=== PATIENT | female | born 1965 | race Caucasian/White ===

== ENCOUNTER 2017-02-27 08:49 | Inpatient (IN) ==
[2017-02-27 09:12] LABS: MANUAL DIFF NEEDED? NO
[2017-02-27] MEDS ORDERED: ZOFRAN IV ONE ×2 (09:15→12:06)
[2017-02-27] MEDS ORDERED: TORADOL IV ONE (09:15)
[2017-02-27 09:24] LABS: BILIRUBIN URINE NEGATIVE (NEGATIVE); BLOOD URINE 1+ (NEGATIVE); CLARITY SL. CLOUDY (CLEAR); COLOR YELLOW; GLUCOSE URINE NEGATIVE (NEGATIVE); LEUKOCYTES URINE TRACE (NEGATIVE); NITRITE URINE NEGATIVE (NEGATIVE); PROTEIN URINE 1+(30 mg/dL) mg/dL (NEGATIVE); UROBILINOGEN URINE NORMAL
[2017-02-27 09:28] LABS: URINE CULTURE PL NEEDED? YES; URINE EPITHELIAL CELLS <10 /HPF (<10); URINE RBC <10 /HPF (<10)
[2017-02-27 09:29] LABS: URINE CAST GRANULAR PRESENT /LPF; URINE SOURCE CLEAN CATCH
[2017-02-27 09:50] LABS: AGAP 18; ALKALINE PHOSPHATASE 127 U/L (32-104); AMYLASE 29 U/L (20-200); BUN 20 mg/dL (8-22); CHLORIDE 93 mmol/L (98-107); COSMO 262; GOT 25 U/L (10-30); GPT 17 U/L (10-36); LIPASE 32 U/L (13-60); POTASSIUM 3.6 mmol/L (3.5-5.1); SODIUM 128 mmol/L (136-145); TCO2 17 mmol/L (25-35); TOTAL PROTEIN 7.9 g/dL (6.3-8.3)
[2017-02-27 09:52] LABS: BASO% 0.1 % (0.0-0.8); EOS# 0.02 X1000 (0.0-0.7); EOS% 0.2 % (0.0-10.0); HEMATOCRIT 48.1 % (37.0-47.0); HEMOGLOBIN 16.6 g/dL (12.0-16.0); IMM GRAN# 0.02 X1000 (0.0-0.04); IMM GRAN% 0.2 % (0.0-0.5); LYMPH# 1.42 X1000 (1.2-3.4); MCH 29.5 PG (27-31); MCHC 34.5 g/dL (33-37); MCV 85.6 FL (81-99); MONO# 1.03 X1000 (0.11-0.59); MONO% 10.1 % (1.7-9.3); MPV 10.9 FL (7.4-10.4); NEUT% 75.4 % (42.2-75.2); PLT 219 X1000 (130-400); RBC 5.62 XMIL (4.2-5.4)
[2017-02-27] MEDS ORDERED: NS 1,000 ML IV ONE ×2 (09:54→12:01)
[2017-02-27] MEDS ORDERED: MORPHINE ONE (09:59)
[2017-02-27] MEDS ORDERED: MORPHINE IV ONE (10:00)
--- NOTE | 2017-02-27 11:38 | Diag Imaging Result Doc PS360 ---
CT ABD/PELVIS W/ IV CONT ONLY - 02/27/2017 INDICATION: abd pain TECHNIQUE: A CT dose reduction protocol was used. COMPARISON: None FINDINGS: The lung bases are clear and the heart size is normal. The liver, gallbladder, spleen, pancreas, adrenals, and kidneys are normal. There is significant wall thickening of the colon involving the transverse, descending, and sigmoid colon. Normal appendix. The rectum is spared. Urinary bladder and uterus are normal. Bones are intact. No free air or free fluid. The aorta and its branches are patent with very little in the way of vascular disease. IMPRESSION: Significant colitis. Presumably infectious. Correlate clinically. Electronically signed by Rosalino Chavez 02/27/2017 11:36 AM
[2017-02-27] MEDS ORDERED: FLAGYL 500 MG/NS 500 MG/100 ML IVPB IV ONE (11:48)
[2017-02-27] MEDS ORDERED: LEVAQUIN 750 MG/D5W 750 MG/150 ML IVPB IV ONE (11:48)
[2017-02-27] MEDS ORDERED: TYLENOL PO PRN (12:01)
[2017-02-27] MEDS ORDERED: DILAUDID IV ONE (12:05)
[2017-02-27] MEDS ORDERED: FLAGYL 500 MG/NS 500 MG/100 ML IVPB ONE (12:19)
[2017-02-27] MEDS ORDERED: ZOFRAN IV PRN ×2 (17:05→18:26)
[2017-02-27] MEDS ORDERED: SODIUM CHLORIDE 0.9% INJ PRN ×2 (17:06→18:26)
[2017-02-27] MEDS ORDERED: PHENERGAN IV PRN ×2 (17:06→18:25)
[2017-02-27] MEDS ORDERED: KLONOPIN PO PRN (17:14)
[2017-02-27] MEDS ORDERED: LEVAQUIN 750 MG/D5W 750 MG/150 ML IVPB IV SCH (17:15)
[2017-02-27] MEDS ORDERED: SODIUM CHLORIDE 0.9% INJ SCH (17:15)
[2017-02-27] MEDS ORDERED: NS 1,000 ML IV SCH (17:15)
[2017-02-27] MEDS ORDERED: PROTONIX IV SCH (17:15)
[2017-02-27] MEDS ORDERED: FLAGYL 500 MG/NS 500 MG/100 ML IVPB IV SCH (17:15)
[2017-02-27] MEDS: ZOFRAN IV PRN ×2 (17:52→22:37)
[2017-02-27] MEDS: MORPHINE IV PRN ×2 (17:53→22:37)
[2017-02-27 18:19] LABS: OCCULT BLOOD 1 POSITIVE (NEGATIVE)
[2017-02-27] MEDS: PROTONIX IV SCH (18:40)
[2017-02-27] MEDS: SODIUM CHLORIDE 0.9% INJ SCH (18:40)
[2017-02-27] MEDS: FLAGYL 500 MG/NS 500 MG/100 ML IVPB IV SCH (18:45)
[2017-02-27] MEDS: LEVAQUIN 750 MG/D5W 750 MG/150 ML IVPB IV SCH (19:43)
[2017-02-27] MEDS: KLONOPIN PO PRN (21:03)
[2017-02-27] MEDS: NEURONTIN PO SCH (21:03)
[2017-02-28] MEDS: FLAGYL 500 MG/NS 500 MG/100 ML IVPB IV SCH ×4 (00:35→18:49)
[2017-02-28] MEDS: NS 1,000 ML IV SCH ×2 (03:25→12:24)
[2017-02-28] MEDS: MORPHINE IV PRN ×5 (03:26→21:25)
[2017-02-28 06:54] LABS: AGAP 9; ALBUMIN 3.2 g/dL (3.5-5.0); ALKALINE PHOSPHATASE 98 U/L (32-104); BUN 14 mg/dL (8-22); CALCIUM 8.2 mg/dL (8.8-10.2); CHLORIDE 103 mmol/L (98-107); COSMO 268; GOT 24 U/L (10-30); GPT 15 U/L (10-36); POTASSIUM 3.8 mmol/L (3.5-5.1); SODIUM 134 mmol/L (136-145); TCO2 22 mmol/L (25-35); TOTAL BILIRUBIN < 0.15 mg/dL (0.20-1.00); TOTAL PROTEIN 6.1 g/dL (6.3-8.3)
[2017-02-28 06:56] LABS: HEMATOCRIT 39.5 % (37.0-47.0); HEMOGLOBIN 13.6 g/dL (12.0-16.0); MCHC 34.4 g/dL (33-37); MCV 87.2 FL (81-99); MPV 10.5 FL (7.4-10.4); RBC 4.53 XMIL (4.2-5.4)
[2017-02-28] MEDS: NEURONTIN PO SCH ×2 (08:58→20:58)
[2017-02-28] MEDS ORDERED: NEURONTIN PO SCH (09:00)
[2017-02-28] MEDS: PROTONIX IV SCH (18:49)
[2017-02-28] MEDS: SODIUM CHLORIDE 0.9% INJ SCH (18:49)
[2017-02-28] MEDS: LEVAQUIN 750 MG/D5W 750 MG/150 ML IVPB IV SCH (20:58)
[2017-02-28] MEDS: KLONOPIN PO PRN (23:30)
[2017-03-01] MEDS: NS 1,000 ML IV SCH (00:54)
[2017-03-01] MEDS: MORPHINE IV PRN ×5 (02:07→21:44)
[2017-03-01] MEDS: FLAGYL 500 MG/NS 500 MG/100 ML IVPB IV SCH ×2 (02:24→07:10)
[2017-03-01] MEDS ORDERED: LEVAQUIN 750 MG/D5W 750 MG/150 ML IVPB IV SCH (08:00)
[2017-03-01] MEDS ORDERED: FLAGYL 500 MG/NS 500 MG/100 ML IVPB IV SCH (08:00)
[2017-03-01] MEDS: NEURONTIN PO SCH ×2 (08:59→20:20)
[2017-03-01] MEDS: LEVAQUIN PO SCH (08:59)
[2017-03-01] MEDS: FLAGYL PO SCH ×3 (08:59→17:34)
[2017-03-01] MEDS: SODIUM CHLORIDE 0.9% INJ SCH (17:34)
[2017-03-01] MEDS: PROTONIX IV SCH (17:34)
[2017-03-01] MEDS: KLONOPIN PO PRN (20:19)
[2017-03-02] MEDS: MORPHINE IV PRN ×3 (02:29→13:07)
[2017-03-02] MEDS: LEVAQUIN PO SCH (09:08)
[2017-03-02] MEDS: NEURONTIN PO SCH (09:09)
[2017-03-02] MEDS: FLAGYL PO SCH ×2 (09:09→13:07)
[2017-03-02 11:04] VITALS: BP 100/62
[2017-03-03] MEDS ORDERED: LEVAQUIN PO SCH (09:00)
== END 2017-03-02 14:46 | disposition home or self-care (01) ==
LOC: P.ED 08:49 → SUATTDRO 08:50 → P.MEDSURG 08:50
PROVIDERS: ATTEND Internal Medicine

== ENCOUNTER 2019-08-11 18:14 | Inpatient (IN) ==
[2019-08-11] MEDS ORDERED: NS 1,000 ML IV ONE ×2 (18:26→20:54)
--- NOTE | 2019-08-11 18:42 | PROVIDER DOCUMENTATION ---
HPI-Abdominal Pain/GI Problem - General Chief Complaint: Vomiting Blood Stated Complaint: NAUSEATED, VOMITING BLOOD Time Seen by Provider: 08/11/19 18:25 Source: patient Allergies/Adverse Reactions: Patient Allergies Allergy/AdvReac Type Severity Reaction Status Date / Time No Known Allergies Allergy Verified 07/21/18 15:24 Home Medications: Home Medication List Medication Instructions Recorded Confirmed Last Taken Type Gabapentin [Neurontin] 300 mg PO BID 02/27/17 07/22/18 07/21/18 22:00 History Fluoxetine HCl [Prozac] 10 mg PO DAILY 10/07/17 07/22/18 07/22/18 04:00 History Hydrocodone/Acetaminophen 7.5 mg PO BID 10/07/17 07/22/18 07/21/18 22:00 History [Hydrocodone-Acetamin 7.5-325] Lorazepam [Ativan] 1 mg PO DAILY 10/07/17 07/22/18 07/22/18 04:00 History Tizanidine HCl 4 mg PO HS 10/07/17 07/22/18 07/21/18 22:00 History Amiodarone [Cordarone] 400 mg PO DAILY tablet 10/17/17 07/22/18 07/22/18 04:00 Rx Apixaban [Eliquis] 5 mg PO BID tablet 10/17/17 07/22/18 07/21/18 22:00 Rx Omeprazole [Prilosec] 40 mg PO DAILY@0700 capsule 10/17/17 07/22/18 07/22/18 04:00 Rx Albuterol 2.5MG/Ipratrop 0.5MG 3 ml INH Q3-4H PRN PRN #30 neb 07/18/18 Unknown Rx [Duoneb] Furosemide [Lasix] 20 mg PO DAILY 07/18/18 07/22/18 07/22/18 04:00 History Hydroxyzine [Atarax] 10 mg PO TID 07/18/18 07/22/18 07/21/18 22:00 History Nebulizer Accessories [Nebulizer] 1 ea MC Q3HR #1 kit 07/18/18 07/22/18 07/21/18 22:00 Rx Clindamycin [Cleocin] 300 mg PO Q6HR #80 cap 07/21/18 07/22/18 07/21/18 22:00 Rx Tramadol [Ultram] 50 mg PO Q6H PRN PRN #22 tab 07/21/18 07/22/18 Unknown Rx Fluticasone/Salmet 250/50 INH 1 puff INH DAILY 07/22/18 07/22/18 07/22/18 04:00 History [Advair 250/50 Diskus] - History of Present Illness-ABD Nature of Presenting Problems: 54 yo F, hx of HTN, HF, 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 Pt appears pale in bed at time of evaluation. Abdominal Pain Onset Location: reports: generalized abdomen Pain Radiation: reports: no radiation Quality of Pain: reports: aching Severity in ED: reports: moderate Onset/Duration: reports: 4-6 hours ago Timing: reports: still present Activities at Onset: reports: none Exposure to sick contacts?: No Modifying Factors: improves with: nothing Associated Symptoms: reports: malaise, nausea, vomiting Last BM: this afternoon Dark Stools Present?: reports: black, tarry Rectal Pain: reports: none # of Vomiting Episodes: 1 Emesis Description: reports: coffee grounds Review of Systems - Adult - REVIEW OF SYSTEMS - ADULT Constitutional: reports: see HPI Eyes: reports: no symptoms reported Ears, Nose, Mouth & Throat: reports: no symptoms reported Cardiovascular: reports: no symptoms reported Respiratory: reports: no symptoms reported Gastrointestinal: reports: see HPI, abdominal pain, hematemesis, nausea, vomiting Genitourinary: reports: no symptoms reported Musculoskeletal: reports: no symptoms reported Integumentary: reports: no symptoms reported Neurological: reports: no symptoms reported Psychiatric: reports: no symptoms reported Past History - Adult - PAST MEDICAL HISTORY-ADULT Review of Records: reports: Old Records Reviewed, Nursing Assessment Review Major Childhood Illnesses: reports: denies history Cardiovascular: reports: CHF, HTN Respiratory: reports: denies history Gastrointestinal: reports: GERD Obstetrical/Gynecological: reports: denies history Genitourinary: reports: denies history Musculoskeletal: reports: chronic pain, other (rt foot old burn and chronic wound) Neurological: reports: denies history Psychiatric: reports: denies history Endocrine/Immune: reports: denies history Other Conditions: reports: denies history - PRIOR SURGERIES/PROCEDURES Surgical/Procedure History: reports: BTL, other (skin grafts to rt foot) - IMMUNIZATION STATUS Childhood Immunizations: See Nurse Assessment Flu Vaccine: See Nurse Assessment - FAMILY HISTORY Family History: reviewed, not pertinent Physical Exam-General - PHYSICAL EXAM-ADULT Initial Vital Signs Reviewed: Yes - CONSTITUTIONAL General Appearance: alert, mild distress - EYES Eyes: PERRL/EOMI - HEAD, EARS, NOSE, MOUTH & THROAT HENMT: normocephalic/atraumatic, moist mucous membranes - RESPIRATORY Respiratory: chest non-tender, lungs clear, normal breath sounds - CARDIOVASCULAR Cardiovascular: regular rate, rhythm - GASTROINTESTINAL (ABDOMEN) Abdominal Exam: normal bowel sounds, soft, tenderness (mildly tender, generalized) - SKIN Integumentary: warm/dry - PSYCHIATRIC Psych/Mental Status: normal mood/affect, oriented x 3 Progress - PLAN OF CARE/RESULTS Progress/Plan/Lab Results: Vital Signs - 8 hr 08/11/19 18:18 Temperature 96.0 F L Pulse Rate 82 Respiratory Rate 16 O2 Sat by Pulse Oximetry 100 Orders Category Date Time Status CHEST-2 VIEWS [RAD] Stat Exams 08/11/19 18:[address] ABDOMEN/PELVIS W/O CONTRAST [CT] Stat Exams 08/11/19 18:41 Ordered CBC WITH ELECTRONIC DIFF [HEME] Stat Lab 08/11/19 18:26 Uncollected COMPREHENSIVE METABOLIC PANEL [CHEM] Stat Lab 08/11/19 18:26 Uncollected TYPE & SCREEN [BBK] Stat Lab 08/11/19 18:26 Uncollected URINALYSIS W/POSS RFLX CULT [URINALYSIS] Stat Lab 08/11/19 18:26 Uncollected 0.9% Sodium Chloride Inj [Ns] 1,000 ml Med 08/11/19 18:26 Active IV 999 mls/hr Discussed with pt and family at bedside - there are lab findings concerning for acute blood loss; discussed the case with the hospitalist who accepts the pt for admission. Result Diagrams: 08/11/19 19:32 08/11/19 19:32 - XRAY 1 XRAY Study: Chest Impression: See EMR Report (EXAM: CHEST-2 VIEWS - 08/11/2019 HISTORY: short of breath TECHNIQUE: Chest two views COMPARISON: 07/18/2018 FINDINGS: Heart size is normal. The lungs appear clear. There is no pleural effusion or pne umothorax identified. IMPRESSION: No evidence of acute disease. Electronically signed by John Crawford 08/11/2019 7:30 PM 08/11/191929 Interpreting Physician: John Crawford MD Dictated Date/Time: 08/11/191928 cc: Madison Ambrocio MD; Ryder Mclain) - CT/MRI 1 CT Study: Abdomen, Pelvis Impression: See EMR Report (EXAM: CT ABDOMEN/PELVIS W/O CONTRAST - 08/11/2019 HISTORY: abd pain, vomiting blood TECHNIQUE: CT abdomen/pelvis without contrast. No contrast administered per request of the referring provider. COMPARISON: 10/11/2017 CT abdomen/pelvis with intravenous contrast FINDINGS: There is some limitation of detail without administered contrast. The visualized lung bases are clear. There are no substantial abnormalities of the liver, spleen, adrenal glands, or pancreas identified. There are no calcified gallstones or pericholecystic inflammation identified. There are small nonobstructing stones in the bilateral kidneys. There is no obstructing renal stone or hydronephrosis identified. There are small to borderline retroperitoneal lymph nodes similar to prior. There are atherosclerotic calcifications noted. There are substantial lower lumbar spine degenerative changes noted. There is no evidence of bowel obstruction. The appendix is unremarkable. There is mild wall thickening along the sigmoid colon. There is no surrounding inflammation or infiltration of adjacent fat. There is no extraluminal gas collection or abscess identified. There is no free air or free fluid identified. IMPRESSION: No bowel obstruction. Unremarkable appendix. Mild wall thickening along sigmoid colon. No surrounding inflammation. Small nonobstructing stones in bilateral kidneys. Stable small to borderline retroperitoneal lymph nodes. Substantial lower lumbar spine degenerative changes. This exam was performed using automated exposure control, adjustment of mA or kV according to patient size, and/or use of iterative reconstruction technique. Electronically signed by John Crawford 08/11/2019 7:29 PM) - CONSULTS/PCP/HOSPITALIST Notification #1 *Consult/PCP/Hospitalist*: Dr. Jackman Time Discussed: 20:28 Consult Disposition: Admit Departure - Departure Date of Disposition Decision: 08/11/19 Time of Disposition Decision: 20:29 DIAGNOSIS: GI bleed Qualifiers: GI bleed type/associated pathology: unspecified gastrointestinal hemorrhage type Qualified Code(s): K92.2 - Gastrointestinal hemorrhage, unspecified Disposition: ADMITTED INPATIENT 09 Certified Medical Emergency: Emergent Condition: Fair Referrals and Follow-Ups: Ryder Mclain [Primary Care Provider] - - Critical Care Note This patient required my direct & personal management of CC.: No Attestation - Physician/ RISHI Attestation Patient care was provided by Advanced Practice Provider:: No The physician spent face to face time with patient:: Yes Advanced Practice Provider documentation review:: Supervising physician onsite and consulted in the evaluation and care of this patient. The physician did have a face to face encounter with the patient.
--- NOTE | 2019-08-11 19:31 | Diag Imaging Result Doc PS360 ---
EXAM: CT ABDOMEN/PELVIS W/O CONTRAST - 08/11/2019 HISTORY: abd pain, vomiting blood TECHNIQUE: CT abdomen/pelvis without contrast. No contrast administered per request of the referring provider. COMPARISON: 10/11/2017 CT abdomen/pelvis with intravenous contrast FINDINGS: There is some limitation of detail without administered contrast. The visualized lung bases are clear. There are no substantial abnormalities of the liver, spleen, adrenal glands, or pancreas identified. There are no calcified gallstones or pericholecystic inflammation identified. There are small nonobstructing stones in the bilateral kidneys. There is no obstructing renal stone or hydronephrosis identified. There are small to borderline retroperitoneal lymph nodes similar to prior. There are atherosclerotic calcifications noted. There are substantial lower lumbar spine degenerative changes noted. There is no evidence of bowel obstruction. The appendix is unremarkable. There is mild wall thickening along the sigmoid colon. There is no surrounding inflammation or infiltration of adjacent fat. There is no extraluminal gas collection or abscess identified. There is no free air or free fluid identified. IMPRESSION: No bowel obstruction. Unremarkable appendix. Mild wall thickening along sigmoid colon. No surrounding inflammation. Small nonobstructing stones in bilateral kidneys. Stable small to borderline retroperitoneal lymph nodes. Substantial lower lumbar spine degenerative changes. This exam was performed using automated exposure control, adjustment of mA or kV according to patient size, and/or use of iterative reconstruction technique. Electronically signed by John Crawford 08/11/2019 7:29 PM
--- NOTE | 2019-08-11 19:32 | Diag Imaging Result Doc PS360 ---
EXAM: CHEST-2 VIEWS - 08/11/2019 HISTORY: short of breath TECHNIQUE: Chest two views COMPARISON: 07/18/2018 FINDINGS: Heart size is normal. The lungs appear clear. There is no pleural effusion or pneumothorax identified. IMPRESSION: No evidence of acute disease. Electronically signed by John Crawford 08/11/2019 7:30 PM
[2019-08-11 19:49] LABS: BASO# 0.03 X1000 (0.0-0.2); BASO% 0.2 % (0.0-0.8); EOS# 0.05 X1000 (0.0-0.7); EOS% 0.4 % (0.0-10.0); HEMATOCRIT 22.5 % (37.0-47.0); HEMOGLOBIN 7.4 g/dL (12.0-16.0); IMM GRAN# 0.08 X1000 (0.0-0.04); IMM GRAN% 0.6 % (0.0-0.5); LYMPH# 2.34 X1000 (1.2-3.4); LYMPH% 16.8 % (20.5-51.1); MCHC 32.9 g/dL (33-37); MCV 91.1 FL (81-99); MONO# 0.95 X1000 (0.11-0.59); MONO% 6.8 % (1.7-9.3); MPV 10.2 FL (7.4-10.4); NEUT# 10.51 X1000 (1.4-6.5); NEUT% 75.2 % (42.2-75.2); PLT 233 X1000 (130-400); RBC 2.47 XMIL (4.2-5.4); RDW 11.9 % (11.5-14.5); WBC 13.96 X1000 (4.8-10.8)
[2019-08-11 20:08] LABS: AGAP 12; ALB/GLOB RATIO 1.8; ALBUMIN 3.1 g/dL (3.5-5.0); ALKALINE PHOSPHATASE 71 U/L (32-104); BUN 45 mg/dL (8-22); CALCIUM 7.8 mg/dL (8.8-10.2); CHLORIDE 115 mmol/L (98-107); COSMO 306; CREATININE 0.6 mg/dL (0.5-0.9); ESTIMATED GFR > 60; GLUCOSE 129 mg/dL (70-104); GOT 16 U/L (10-30); GPT 14 U/L (10-36); POTASSIUM 3.7 mmol/L (3.5-5.1); SODIUM 147 mmol/L (136-145); TCO2 20 mmol/L (25-35); TOTAL BILIRUBIN 0.16 mg/dL (0.20-1.00); TOTAL PROTEIN 4.8 g/dL (6.3-8.3)
[2019-08-11] MEDS ORDERED: PROTONIX IV ONE (20:23)
[2019-08-11] MEDS ORDERED: SODIUM CHLORIDE 0.9% INJ ONE (20:23)
--- NOTE | 2019-08-11 21:14 | HISTORY AND PHYSICAL ---
ADDENDUM: PRIMARY CARE PROVIDER: Ryder Mclain. REASON FOR ADMISSION TODAY: Patient came in today because of 3 to 4 episodes of hematemesis and 3 to 4 episodes of dark melenic stools. No preceding abdominal pain, no fever, no chills. Underwent amputation of 1 of her toes yesterday which was gangrenous. Two days prior to that she was on Eliquis and stopped taking Eliquis. She does also inform me that she was taking Motrin and Goody powders in between for well over a week preceding the surgery to combat the pain. She does admit to feeling lightheaded, short of breath and was diaphoretic prior to come to the hospital. Her lab work of note is 7.2 and 22.5 down from a hematocrit of 33 and a hemoglobin of 10 year ago. BUN is 45, creatinine 0.6. VITAL SIGNS: Heart rate 82, respiratory rate 16, temperature is 96 degrees, blood pressure 104/71, heart rate 78. Exam is notable for profound conjunctiva pallor and generalized pallor. She has mild periumbilical tenderness but no peritoneal signs. Bowel sounds are hyperactive. No masses appreciated. PLAN: Patient will be on a high dose PPIs. Consult GI to see patient for endoscopic evaluation. Transfuse blood to keep hematocrit a shade over 8 being that patient has underlying vascular disease. Avoid potential medications that can worsen bleeding or affect platelet function indirectly namely Eliquis, Prozac, NSAIDs for now. Other home medications i.e. inhalers can be continued. The patient says has a history of heart failure, atrial fibrillation and I would recommend if patient is going to get another transfusion that they should pretreat the patient with low-dose Lasix 20 mg IV push for the 2nd or subsequent transfusions. cc: Josseline Jackman MD
[2019-08-11 21:28] LABS: INR 1.04; PROTIME 13.8 Seconds (11.0-16.0); PTT 27.3 Seconds (22.3-41.8)
[2019-08-11] MEDS ORDERED: NS 500 ML ONE (21:49)
[2019-08-11] MEDS ORDERED: XOPENEX NEB INH PRN (22:24)
[2019-08-11] MEDS ORDERED: ATROVENT NEB INH PRN (22:24)
[2019-08-11] MEDS ORDERED: ZOFRAN IV PRN (22:26)
[2019-08-11] MEDS ORDERED: OFIRMEV 1000 MG/ISOTONIC SOLN 1,000 MG/100 ML BOTTLE IV ONE (22:29)
[2019-08-11] MEDS ORDERED: NS NEB INH SCH (22:30)
[2019-08-11] MEDS ORDERED: NS 1,000 ML IV SCH (22:30)
[2019-08-12 02:02] LABS: HEMATOCRIT 23.1 % (37.0-47.0); HEMOGLOBIN 7.4 g/dL (12.0-16.0)
[2019-08-12] MEDS ORDERED: MORPHINE IV ONE ×2 (02:04→08:26)
[2019-08-12] MEDS ORDERED: SODIUM CHLORIDE 0.9% INJ PRN (02:06)
--- NOTE | 2019-08-12 05:34 | EKG Report ---
Test Performed on : 08/11/2019 11:09:23 PM Test Reason : WEAKNESS Blood Pressure : / mmHG Vent. Rate : 099 BPM Atrial Rate : 099 BPM P-R Int : 184 ms QRS Dur : 084 ms QT Int : 410 ms P-R-T Axes : 066 071 066 degrees QTc Int : 526 ms Sinus rhythm. with premature ventricular complexes. or fusion complexes Prolonged QT Abnormal ECG When compared with ECG of 18-JUL-2018 20:29, fusion complexes are now present premature ventricular complexes. are now present Vent. rate has increased BY 37 BPM Nonspecific T wave abnormality no longer evident in Inferior leads Nonspecific T wave abnormality no longer evident in Lateral leads Unconfirmed Result
--- NOTE | 2019-08-12 05:35 | EKG Report ---
Test Performed on : 08/12/2019 05:25:58 AM Test Reason : Hx of A-Fib, GI Bleed Blood Pressure : / mmHG Vent. Rate : 070 BPM Atrial Rate : 070 BPM P-R Int : 176 ms QRS Dur : 080 ms QT Int : 486 ms P-R-T Axes : 068 073 070 degrees QTc Int : 524 ms Sinus rhythm. with premature atrial complexes. Prolonged QT Abnormal ECG When compared with ECG of 11-AUG-2019 23:09, (Unconfirmed) fusion complexes are no longer present premature ventricular complexes. are no longer present premature atrial complexes. are now present Confirmed by Carlos Mon MD ([id number]) on 08/14/2019 5:28:52 PM
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
[2019-08-12] MEDS: PROTONIX IV SCH ×2 (08:22→22:18)
[2019-08-12] MEDS: SODIUM CHLORIDE 0.9% INJ SCH (08:25)
[2019-08-12 11:08] LABS: BASO# 0.02 X1000 (0.0-0.2); BASO% 0.2 % (0.0-0.8); EOS% 1.2 % (0.0-10.0); HEMATOCRIT 25.3 % (37.0-47.0); HEMOGLOBIN 8.1 g/dL (12.0-16.0); IMM GRAN# 0.02 X1000 (0.0-0.04); IMM GRAN% 0.2 % (0.0-0.5); LYMPH# 3.08 X1000 (1.2-3.4); LYMPH% 36.7 % (20.5-51.1); MCH 28.7 PG (27-31); MCV 89.7 FL (81-99); MONO# 0.61 X1000 (0.11-0.59); MONO% 7.3 % (1.7-9.3); MPV 9.9 FL (7.4-10.4); NEUT# 4.56 X1000 (1.4-6.5); NEUT% 54.4 % (42.2-75.2); PLT 168 X1000 (130-400); RBC 2.82 XMIL (4.2-5.4); RDW 12.8 % (11.5-14.5); WBC 8.39 X1000 (4.8-10.8)
[2019-08-12 11:13] LABS: INR 1.05; PROTIME 13.9 Seconds (11.0-16.0)
[2019-08-12 11:25] LABS: AGAP 11; BUN 27 mg/dL (8-22); CALCIUM 7.8 mg/dL (8.8-10.2); CHLORIDE 112 mmol/L (98-107); COSMO 292; CREATININE 0.6 mg/dL (0.5-0.9); ESTIMATED GFR > 60; GLUCOSE 104 mg/dL (70-104); POTASSIUM 3.6 mmol/L (3.5-5.1); SODIUM 144 mmol/L (136-145); TCO2 21 mmol/L (25-35)
--- NOTE | 2019-08-12 13:26 | PROGRESS NOTE ---
DATE: 08/12/2019 SUBJECTIVE: The patient seems to be more stable now. She received 2 units of packed red blood cells. Continue with the same management. Continue with Protonix twice a day. Gastroenterology Department has been consulted. OBJECTIVE: Vital Signs: Temperature 98.2 degrees, pulse 67, respiratory rate 22, blood pressure 112/76, oxygen saturation 99 on 2 L of nasal cannula. HEENT: Head normocephalic, no trauma. PERRLA. Neck: Supple. No JVD. No masses. Central trachea. Chest: Clear to auscultation. No wheezing. No rales. Abdomen: Soft, some tenderness to palpation at the level of the epigastric area. Extremities: No edema, no clubbing, no cyanosis. She has a dressing at the level of the right foot. She had a 5th toe amputation on 08/10/2019 in [place]. LABORATORY: WBC 8.3, hemoglobin 8.1, hematocrit 35.3, platelets 168,000. ASSESSMENT AND PLAN: 1. Upper gastrointestinal bleed. Gastroenterology department has been consulted. She has been having hematemesis and melena. She has been on Eliquis due to atrial fibrillation, but also she has been taking NSAIDs and Goody's powders to help to control the pain. She does have symptomatic anemia as well. 2. Symptomatic anemia, as above, due to gastrointestinal bleed. She was complaining mainly of dizziness. 3. History of atrial fibrillation with chronic anticoagulation. At this moment she is in sinus rhythm. Continue to monitor. 4. History of chronic obstructive pulmonary disease, not in exacerbation. 5. History of congestive heart failure. Continue to monitor for now. No signs or symptoms of congestive heart failure. 6. Chronic pain and anxiety. I had a large conversation with this patient about pain medication, NSAIDs and taking non-prescribed medications, they seem to understand. 7. Postoperative state of a right 5th toe amputation on 08/10/2019. Aware. 8. Deep vein thrombosis prophylaxis for now with SCDs due to gastrointestinal bleed. cc: Harvinder Varela MD
[2019-08-12] MEDS: MORPHINE IV PRN ×3 (13:38→22:19)
[2019-08-12] MEDS: NS 1,000 ML IV SCH ×2 (15:35→23:09)
--- NOTE | 2019-08-12 17:04 | GASTROENTEROLOGY CONSULTATION ---
DATE: 08/12/2019 REASON FOR CONSULTATION: Hematemesis, melena. HISTORY OF PRESENT ILLNESS: This is a 54-year-old female who came into the emergency room on 08/11/2019 with hematemesis and melena. She states symptoms started on Wednesday. Of note, patient did have a right 5th toe amputation on by Dr. Preston in [place]. The patient takes Eliquis for history of atrial fibrillation. She states her last Eliquis dose was on Wednesday. During review of systems, patient does state that she also takes frequent Goody powders up to 2 packets a day and also other NSAIDs like Advil or Motrin for chronic pain. She states she has never had a gastric ulcer in the past. She does report having a colonoscopy about [address] Bullard. She has never had an EGD. She has reported some lower abdominal pain. She reported some dizziness. She states she did feel like she may pass out but did not have a syncopal episode. No reported chest pain or shortness of breath. PAST MEDICAL HISTORY: Hypertension, COPD, anxiety, depression, atrial fibrillation with anticoagulation on Eliquis, degenerative disk disease, arthritis, chronic pain neck, back and knees, history of longstanding wound to right foot, she has had 4th toe to the right foot amputated and recently had the 5th toe amputated on 08/10/[address] Preston. PAST SURGICAL HISTORY: Tubal ligation, skin graft x2, recent 5th toe amputation by Dr. Preston in [place] on 08/10/2019 and history of 4th toe amputation. She sees Dr. Evangelista for her atrial fibrillation. ALLERGIES: No known drug allergies. HOME MEDICATIONS: Albuterol inhaler every 3 to 4 hours as needed, Cordarone 400 mg daily, Eliquis 5 mg twice a day, Cleocin 300 mg every 6 hours, Prozac 40 mg daily, Lasix 20 mg daily, Neurontin 300 mg twice a day, hydrocodone/acetaminophen 7.5/325 10 mg twice a day, Atarax 10 mg 3 times a day, Ativan 1 mg daily, nebulizer as directed, Prilosec 40 mg daily, tizanidine 4 mg every night. SOCIAL HISTORY: History of tobacco use quit cigarette use but reports vaping, no reported alcohol use. FAMILY HISTORY: Mother had breast cancer and lung cancer, father blood disorder. REVIEW OF SYSTEMS: Per history of present illness.Vital Signs: Temperature 98.7 degrees, pulse 73, respirations 19, blood pressure 120/82. General: Patient is awake and alert. No acute distress. HEENT: Normocephalic, atraumatic. Pupils equal, round, reactive to light. Sclerae nonicteric. Respiratory: Lung sounds essentially clear. Cardiovascular: Atrial fibrillation. Abdomen: Soft, positive bowel sounds, mildly tender. Extremities: With right foot with a dressing in place from recent toe amputation. Neurologic: Cranial nerves 2-12 grossly intact. LABORATORY: Hematology, WBC 8.39, hemoglobin 8.1, hematocrit 25.3, MCV 89.7, platelet 168,000. Coagulation. Pro time 13.9, INR 1.05, PTT 27.3. Chemistry. Sodium 144, potassium 3.6, chloride 112, CO2 21, BUN 27, creatinine 0.6, glucose 104, calcium 7.8, total bilirubin 0.16, AST 16, ALT 14, alkaline phosphatase 71, albumin 3.1. Imaging. Abdominal pelvis CT scan showed no bowel obstruction, mild wall thickening sigmoid colon. No surrounding inflammation. Small nonobstructive kidney stones. Stable retroperitoneal lymph nodes. ASSESSMENT AND PLAN: 1. Hematemesis. 2. Melena. 3. Anemia requiring 2 units of packed red blood cell transfusion. 4. History of atrial fibrillation on anticoagulation. 5. Arthritis and chronic pain with other nonsteroidal anti-inflammatory drugs use. 6. We will monitor hemoglobin, hematocrit, transfuse further packed red blood cells. We will plan for EGD most likely tomorrow and I have discussed the procedure along with benefits and risks with the patient. She had a recent colonoscopy about [address] Bullard. We will proceed with EGD 1st and further plans will be made as needed. I have discussed benefits and risks with the patient. She wishes to proceed. I have discussed this case with Dr. Martínez. Thank you for this consult. Dictated by DEREK Hall for Troy Martínez MD cc: DEREK Mancera MD [facility]
[2019-08-12 18:14] LABS: HEMATOCRIT 25.6 % (37.0-47.0); HEMOGLOBIN 8.1 g/dL (12.0-16.0)
[2019-08-13] MEDS: MORPHINE IV PRN ×4 (02:32→20:30)
[2019-08-13] MEDS: NS 1,000 ML IV SCH ×2 (06:08→18:59)
[2019-08-13 07:13] LABS: BASO# 0.02 X1000 (0.0-0.2); BASO% 0.3 % (0.0-0.8); EOS# 0.13 X1000 (0.0-0.7); EOS% 2.1 % (0.0-10.0); HEMATOCRIT 26.1 % (37.0-47.0); HEMOGLOBIN 8.4 g/dL (12.0-16.0); IMM GRAN# 0.02 X1000 (0.0-0.04); IMM GRAN% 0.3 % (0.0-0.5); LYMPH# 2.96 X1000 (1.2-3.4); LYMPH% 48.9 % (20.5-51.1); MCH 29.1 PG (27-31); MCHC 32.2 g/dL (33-37); MCV 90.3 FL (81-99); MONO% 6.6 % (1.7-9.3); MPV 10.1 FL (7.4-10.4); NEUT# 2.52 X1000 (1.4-6.5); NEUT% 41.8 % (42.2-75.2); PLT 177 X1000 (130-400); RBC 2.89 XMIL (4.2-5.4); WBC 6.05 X1000 (4.8-10.8)
[2019-08-13 07:17] LABS: AGAP 9; BUN 12 mg/dL (8-22); CALCIUM 8.1 mg/dL (8.8-10.2); CHLORIDE 113 mmol/L (98-107); COSMO 288; CREATININE 0.6 mg/dL (0.5-0.9); ESTIMATED GFR > 60; GLUCOSE 95 mg/dL (70-104); POTASSIUM 3.5 mmol/L (3.5-5.1); SODIUM 145 mmol/L (136-145); TCO2 23 mmol/L (25-35)
--- NOTE | 2019-08-13 08:20 | PROGRESS NOTE ---
DATE: 08/13/2019 SUBJECTIVE: The patient seems to be more stable. Her hemoglobin went up a little bit from 8.1 to 8.4. She will have a procedure done today, upper endoscopy. She has been placed NPO. We will monitor this patient closely. Probably, she can go to the medical floor if she is stable after the procedure. OBJECTIVE: Vital Signs: Temperature 98.1 degrees, pulse 64, respiratory rate 18, blood pressure 128/78, oxygen saturation 96 on room air. HEENT: Head normocephalic. No trauma. PERRLA. Neck: Supple. No JVD. No masses. Central trachea. Chest: Clear to auscultation. No wheezing. No rales. Abdomen: Soft. Some tenderness to palpation at the level of the epigastric area. Extremities: No edema, no clubbing, no cyanosis. Neurological Examination: The patient is awake and alert. She is oriented x3. No focal deficits. She had a 5th toe amputation on the right side. Laboratory: WBCs 6, hemoglobin 8.4, hematocrit 26.1, platelets 177,000. Sodium 145, potassium 3.5, chloride 113, bicarbonate 23, BUN 12, creatinine 0.6, glucose 95, calcium 8.1. ASSESSMENT AND PLAN: 1. Upper gastrointestinal bleed. Gastroenterology department already evaluated this patient. She has been having hematemesis and melena. She has been on Eliquis due to atrial fibrillation but also, she has been taking nonsteroidal anti-inflammatory drugs and Goody's Powder as an outpatient to help to control the pain. 2. Symptomatic anemia, as above, likely due to gastrointestinal bleed. Her main complaint was dizziness. 3. History of atrial fibrillation with chronic anticoagulation. At this moment, she is sinus rhythm. Continue to monitor. We will need to hold the blood thinners for now. 4. History of chronic obstructive pulmonary disease, not in exacerbation. 5. History of congestive heart failure. Continue to monitor. No signs or symptoms of congestive heart failure. 6. Chronic pain and anxiety. I had a large conversation with this patient about pain medication, especially nonsteroidal anti-inflammatory drugs and non-prescribed medications. 7. Postoperative date of right 5th toe amputation on 08/10/2019. Aware. It looks like the 4th toe has been amputated before. 8. Deep vein thrombosis prophylaxis with sequential compression devices due to gastrointestinal bleed. cc: Harvinder Varela MD
[2019-08-13] MEDS: PROTONIX IV SCH ×2 (09:58→20:28)
[2019-08-13] MEDS: SODIUM CHLORIDE 0.9% INJ SCH (09:58)
[2019-08-13] MEDS ORDERED: DIPRIVAN 1% ONE (11:46)
[2019-08-13] MEDS ORDERED: XYLOCAINE-MPF 2% ONE (11:46)
[2019-08-13] MEDS ORDERED: FENTANYL ONE (11:47)
--- NOTE | 2019-08-13 12:05 | ENDOSCOPY OPERATIVE NOTE ---
[facility] ENDOSCOPY OPERATIVE NOTE , EGD PROCEDURE REPORT EXAM DATE: 08/13/2019 PATIENT NAME: Becki Raza ATTENDING: Troy Martínez MD MR#: [id number] REFERRING PHYSICIAN: Davis Maurice MD : 1965 CASE#: [id number] STATUS: inpatient INDICATIONS: The patient is a 54 yr old female here for an EGD due to melena and acute post hemorrha gic anemia. PROCEDURE PERFORMED: EGD w/ biopsy MEDICATIONS: Per Anesthesia CONSENT: The patient understands the risks and benefits of the procedure and understands that these r isks include, but are not limited to: sedation, allergic reaction, infection, perforation and/or bleeding. Alternative means of evaluation and treatment include, among others: physical exam, x-rays, and/or surgical intervention. The patient elects to proceed with this endoscopic procedure. DESCRIPTION OF PROCEDURE: During intra-op preparation period all mechanical and medical equipment was checked for proper function. Hand hygiene and appropriate measures for infection prevention was taken. After the risks, benefits and alternatives of the procedure were thoroughly explained, Informed consent was verified, confirmed and timeout was successfully executed by the treatment team. The patient was anesthetized with topical anesthesia and the [id number] ([id number]) endoscope was introduced through the mouth and advanced to the second portion of the duoden um. Retroflexion was performed in the stomach and revealed an ulcer. The gastroscope was then slowly withdrawn and re moved. ESOPHAGUS: The mucosa of the esophagus appeared normal. STOMACH: Multiple non-bleeding, clean-based, round and linear ulcers ranging between 3-7mm in size we re found in the gastric fundus, gastric body, and gastric antrum. Biopsies were taken at edge of the ulcers. The s tomach otherwise appeared normal. DUODENUM: Mild duodenal inflammation was found in the duodenal bulb. ADVERSE EVENTS: There were no complications. IMPRESSIONS: 1. The mucosa of the esophagus appeared normal 2. Multiple ulcers ranging between 3-7mm in size were found in the gastric fundus, gastric body, and gastric antrum; biopsies were taken 3. The stomach otherwise appeared normal 4. Duodenal inflammation was found in the duodenal bulb RECOMMENDATIONS: 1. Await biopsy results 2. Resume current medications 3. Avoid non-steroid anti-inflammatory drugs 4. Resume previous diet 5. Transfer to ICU Troy Martínez MD eSigned: Troy Martínez MD 08/13/2019 12:04 PM CPT CODES: 11398 Upper gastrointestinal endoscopy including esophagus, stomach, and either the du odenum and/or jejunum as appropriate; with biopsy, single or multiple ICD CODES: 578.1 Blood in stool 285.1 Acute posthemorrhagic anemia 535.60 Duodenitis (without mention of hemorrhage) The ICD and CPT codes recommended by this software are interpretations from the data that the [facility] staff has captured with the software. The verification of the translation of this report to the ICD and CPT co omar and modifiers is the sole responsibility of the health care institution and practicing physician where this report was generated. [employer] will not be held responsible for the validity of the ICD and CPT codes i ncluded on this report. [employer]MA assumes no liability for data contained or not contained herein. CPT is a registered tra demark of the [employer]. PATIENT NAME: Becki Raza MR#: [id number]
[2019-08-13] MEDS: PHENERGAN IV PRN (16:10)
[2019-08-13] MEDS: NEURONTIN PO SCH (20:28)
[2019-08-14] MEDS: MORPHINE IV PRN ×3 (00:28→09:31)
[2019-08-14] MEDS: PHENERGAN IV PRN (00:29)
[2019-08-14] MEDS: NS 1,000 ML IV SCH ×2 (05:27→08:14)
--- NOTE | 2019-08-14 07:27 | Diag Imaging Result Doc PS360 ---
CHEST-PORTABLE - 08/14/2019 INDICATION: dyspnea COMPARISON: 08/11/2019 FINDINGS: The lungs are normally expanded and clear. Heart size and mediastinal contours are normal. No pneumothorax or pleural effusion. IMPRESSION: Negative exam. Electronically signed by Rosalino Chavez 08/14/2019 7:24 AM
[2019-08-14] MEDS: PROTONIX IV SCH (08:11)
[2019-08-14] MEDS: SODIUM CHLORIDE 0.9% INJ SCH (08:11)
[2019-08-14] MEDS: NEURONTIN PO SCH (08:11)
[2019-08-14 08:50] LABS: BASO# 0.02 X1000 (0.0-0.2); BASO% 0.3 % (0.0-0.8); EOS# 0.14 X1000 (0.0-0.7); HEMATOCRIT 28.8 % (37.0-47.0); HEMOGLOBIN 9.2 g/dL (12.0-16.0); IMM GRAN# 0.02 X1000 (0.0-0.04); IMM GRAN% 0.3 % (0.0-0.5); LYMPH# 3.04 X1000 (1.2-3.4); LYMPH% 43.7 % (20.5-51.1); MCHC 31.9 g/dL (33-37); MCV 90.9 FL (81-99); MONO# 0.45 X1000 (0.11-0.59); MONO% 6.5 % (1.7-9.3); NEUT# 3.28 X1000 (1.4-6.5); NEUT% 47.2 % (42.2-75.2); PLT 208 X1000 (130-400); RBC 3.17 XMIL (4.2-5.4); RDW 13.2 % (11.5-14.5); WBC 6.95 X1000 (4.8-10.8)
[2019-08-14] MEDS ORDERED: CORDARONE PO SCH (09:00)
[2019-08-14] MEDS ORDERED: PROZAC PO SCH (09:00)
[2019-08-14] MEDS ORDERED: LASIX PO SCH (09:00)
[2019-08-14 09:13] LABS: AGAP 13; ALB/GLOB RATIO 1.4; ALBUMIN 3.4 g/dL (3.5-5.0); ALKALINE PHOSPHATASE 85 U/L (32-104); BUN 7 mg/dL (8-22); CALCIUM 8.7 mg/dL (8.8-10.2); CHLORIDE 109 mmol/L (98-107); COSMO 288; CREATININE 0.7 mg/dL (0.5-0.9); ESTIMATED GFR > 60; GLUCOSE 121 mg/dL (70-104); GOT 27 U/L (10-30); GPT 24 U/L (10-36); POTASSIUM 3.6 mmol/L (3.5-5.1); SODIUM 145 mmol/L (136-145); TCO2 23 mmol/L (25-35); TOTAL BILIRUBIN 0.24 mg/dL (0.20-1.00); TOTAL PROTEIN 5.9 g/dL (6.3-8.3)
[2019-08-14 09:23] VITALS: BP 155/88
--- NOTE | 2019-08-14 11:51 | GASTROENTEROLOGY PROGRESS NOTE ---
DATE: 08/14/2019 SUBJECTIVE: Ms. Raza is a 54-year-old female. She was sitting in bed. The patient was excited that she had discharge orders to go home. She has denied any nausea, vomiting, or abdominal pain,and also denied noticing any blood in her stools. OBJECTIVE: Vital Signs: Temperature 99.0 degrees, pulse is 60, respirations 14, blood pressure 155/88, oxygen saturation 99% on room air. Patient's weight is 164 pounds. BMI is 30.0 kg/m2. General: She is alert, oriented x3, and in no acute distress. HEENT: Pale conjunctivae, no icterus. PERRL. Neck: Supple. Lungs: Clear to auscultation. Cardiovascular: Regular rate and rhythm. Abdomen: Soft, nontender, nondistended. Active bowel sounds heard in all 4 quadrants. Extremities: No clubbing, no cyanosis, no edema. Pedal pulses 2+, present bilaterally. Neurologic: Alert and oriented x3. LABS: WBCs of 6.95, RBC 3.17, hemoglobin is 9.2, hematocrit 28.8, platelet count 208. Sodium 145, potassium 3.6, chloride 109, carbon dioxide 23, anion gap 13. BUN is 7, creatinine is 0.6, glucose is 121, calcium 8.7. Total bilirubin is 0.24, AST 27, ALT 24, alkaline phosphatase 85, albumin is 3.4. X-RAYS: The patient's chest x-ray has shown negative exam. IMPRESSION AND PLAN: 1. Gastrointestinal bleed. 2. Anemia. 3. NSAIDS abuse. 4. Atrial fibrillation on eliquis which has been held for now. PLAN: Ms. Raza is a 54-year-old female, who came to the hospital with GI bleed. An EGD was done on 08/13. She had multiple ulcers ranging from 3 to 7 mm in size in the gastric fundus, gastric body and gastric antrum. Duodenal inflammation was found in the duodenal bulb. The patient currently has discharge orders to go home. Patient will continue on PPI once daily for 90 days and start MVI QD for 90 days. We will follow her as an outpatient in 3 to 4 weeks as an outpatient. This plan was discussed with Dr. Bullard. Please call us for any further questions or concerns. Dictated by DEREK Read for Christiano Bullard MD cc: Christiano Bullard MD I have seen and examined the patient myself and I agree with the above plan of care. Please call us with any questions or concerns. FLORESITA
--- NOTE | 2019-08-15 08:05 | DISCHARGE SUMMARY ---
ADMISSION DATE: 08/11/2019 DISCHARGE DATE: 08/14/2019 DISCHARGE DIAGNOSES: 1. Upper gastrointestinal bleed. 2. Symptomatic anemia. 3. History of atrial fibrillation with chronic anticoagulation, now in sinus rhythm. 4. History of chronic obstructive pulmonary disease, not in exacerbation. 5. History of congestive heart failure. 6. Chronic pain and anxiety. 7. Postoperative of the right fifth toe amputation on 08/10/2019. PROCEDURES PERFORMED: 1. Chest x-ray dated 08/11/2019, impression: No evidence of acute disease. 2. Abdomen and pelvis CT scan dated 08/11/2019, impression: No bowel obstruction, unremarkable appendix, mild wall thickening along the sigmoid colon, but no surrounding inflammation, small nonobstructing stones in the bilateral kidneys. 3. Chest x-ray dated 08/14/2019, impression: Negative exam. HOSPITAL COURSE: A 54-year-old, female presented to the emergency department, and was admitted on 08/11/2019 due to hematemesis and melena that has been going on for at least 1 day. She apparently not only was taking her regular medications with narcotics, but also she was taking a lot of NSAIDs and Goody powders. She presented with dizziness and generalized weakness. Her hemoglobin upon admission was low at 7.4, and she received 2 units of PRBCs. Also, Gastroenterology Department evaluated this patient, and they have decided to do an upper endoscopy that showed a normal esophagus, multiple ulcers ranging between 3 and 7 mm in size were found in the gastric fundus, gastric body, and gastric antrum. Biopsies were taken. The stomach otherwise appeared normal. The duodenal inflammation was found in the duodenal bulb. They recommended to avoid NSAIDs, resume previous diet, and to transfer this patient to the ICU again for further management. She was doing much better after the procedure. She is basically asymptomatic. She spent the night in the ICU. Vital signs are stable. She will be discharged home, but the only change that I will do with her medications is that I am not going to continue with her anticoagulation right now. 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 PHYSICAL EXAMINATION: Vital Signs: Temperature 99 degrees, pulse 60, respiratory rate 14, blood pressure 155/88, oxygen saturation 99 on room air. HEENT: Head normocephalic. No trauma. PERRLA. Neck: Supple. No JVD. No masses. Central trachea. Chest: Clear to auscultation. No wheezing. No rales. Abdomen: Soft, nontender, nondistended. No hepatosplenomegaly. Extremities: No edema, no clubbing, no cyanosis. Cardiovascular: RRR. No murmurs. Neurological: The patient is awake, alert. She is oriented x3. No focal deficits. LABORATORY DATA: WBC 6.9, hemoglobin 9.2, hematocrit 28.8, platelets 208,000. Sodium 145, potassium 3.6, chloride 109, bicarbonate 23, BUN 7, creatinine 0.7, glucose 121, calcium 8.7. AST 27, ALT 24, alkaline phosphatase 85, albumin 3.4. DISCHARGE MEDICATIONS: DuoNeb 3 mL inhaler every 3 to 4 hours as needed for shortness of breath, amiodarone 400 mg p.o. daily, Prozac 40 mg p.o. daily, Advair 250/50 Diskus 1 puff inhaler inhaled daily, Lasix 20 mg p.o. daily, Neurontin 300 mg p.o. t.i.d., [place] 10 mg p.o. t.i.d., Atarax 10 mg p.o. t.i.d., lorazepam 1 mg p.o. daily, omeprazole 40 mg p.o. b.i.d. for 1 month and then daily, and tizanidine 4 mg p.o. at bedtime. DISCHARGE INSTRUCTIONS: The patient has been instructed to follow up with her hr internship this week and also with her primary doctor in 1 or 2 weeks. Also, I instructed the patient to not take any unprescribed medication, especially pain medication, including Advair, ibuprofen, Goody's powders, etc. cc: Harvinder Varela MD
== END 2019-08-14 10:36 | disposition home or self-care (01) | DRG 378 ==
LOC: ED 18:14 → EDIPHOLD 21:41 → SUATTDRO 21:41 → ICU 23:30
PROVIDERS: ATTEND Internal Medicine